=== PATIENT | female | born 1930 | race Caucasian/White ===

== ENCOUNTER 2016-11-12 13:27 | Inpatient (IN) | payer MEDICARE, BC ==
[~2016-11-12 13:27] MED LIST: K-DUR20 ME1 PO; KEFLEX500 MG/CA1 PO; LUMIGAN2.5 M1 OP; MIRALAX17 GM PO; MULTIVITAMIN1 TAB PO; NEURONTIN300 MG PO; OMEPRAZOLE20 M2 PO; ROXICODONE5 MG PO; SOMA250 MG PO; ULTRAM50 M1 PO; XALATAN2.5 M1 EACH EYE; ZESTORETIC 10/11 TAB PO
[2016-11-12] MEDS ORDERED: ALPHAGAN P5 ML EACH EYE (15:43)
[2016-11-12] MEDS ORDERED: STEROID EYE DROP EACH EYE (15:44)
[2016-11-12] MEDS ORDERED: TYLENOL EXTRA500 M1 PO (15:45)
[2016-11-12 16:50] LABS: BASO % 0.2 % (0-2); EOS % 0.1 % (0-7); HCT-HEMATOCRIT 37.1 % (34.0-49.0); HGB-HEMOGLOBIN 12.3 gm/dl (12.0-15.5); IMMATURE GRANULOCYTES ABSOLUTE 0.03 tho/cmm (0-0.03); IMMATURE GRANULOCYTES PERCENT 0.2 % (0-0.3); LYMPH % 8.7 % (20-45); LYMPH ABSOLUTE COUNT 1.1 tho/cmm (0.8-4.5); MCH (MEAN CORPUSCULAR HGB) 32.4 pg (28.0-32.0); MCHC MEAN CORPUSCULAR HGB CONC 33.2 % (32.0-36.0); MCV (MEAN CELL VOLUME) 97.6 fl (82.0-96.0); MONO % 8.7 % (0-12); MONOCYTE ABSOLUTE COUNT 1.1 tho/cmm (0.0-1.2); NEUTROPHIL ABSOLUTE COUNT 10.6 tho/cmm (1.6-8.0); NEUTROPHIL-AUTOMATED 10.6 tho/cmm (1.6-8.0); NEUTROPHILS % 82.1 % (40-80); PLATELET COUNT 575 tho/cmm (150-450); RED CELL DISTRIBUTION WIDTH 13.8 % (12.4-16.4); WHITE BLOOD COUNT 12.9 tho/cmm (4.0-10.0)
[2016-11-12 17:10] LABS: ALB/GLOB RATIO 0.5 (0.8-2.0); ALBUMIN 2.6 g/dl (3.5-5.0); ALKALINE PHOSPHATASE 238 U/L (33-138); ALT/SGPT 25 U/L (12-78); ANION GAP 16 mmol/L (0-20); AST/SGOT 20 U/L (10-40); BILIRUBIN,TOTAL 0.5 mg/dl (0-1.5); BLOOD UREA NITROGEN 18 mg/dl (6-24); CALCIUM 8.8 mg/dl (8.5-10.5); CARBON DIOXIDE-VENOUS 24 mmol/L (22-32); CHLORIDE 104 mmol/l (96-110); CREATININE 0.65 mg/dl (0.50-1.10); GLUCOSE 101 mg/dL (70-110); POTASSIUM 3.6 mmol/L (3.7-5.1); SODIUM 140 mmol/L (135-145); eGFR VALUE FOR BLACK >90 mL/Min
[2016-11-12 17:23] LABS: URINE BILIRUBIN NEGATIVE (NEG); URINE BLOOD MODERATE (NEG); URINE GLUCOSE (UA) NEGATIVE (NEG); URINE KETONE NEGATIVE (NEG); URINE LEUKOCYTE ESTERASE NEGATIVE (NEG); URINE NITRITE NEGATIVE (NEG); URINE PROTEIN NEGATIVE (NEG)
[2016-11-12 17:24] LABS: URINE APPEARANCE CLEAR; URINE COLOR YELLOW
[2016-11-12 17:35] LABS: URINE WBC 0 /[HPF] (0-5)
[2016-11-12 17:36] LABS: URINE EPITHELIAL CELLS 0 /[HPF] (0-10)
[2016-11-13 05:37] LABS: BASO % 0.3 % (0-2); EOS % 0.1 % (0-7); HCT-HEMATOCRIT 31.4 % (34.0-49.0); HGB-HEMOGLOBIN 10.4 gm/dl (12.0-15.5); IMMATURE GRANULOCYTES ABSOLUTE 0.02 tho/cmm (0-0.03); IMMATURE GRANULOCYTES PERCENT 0.2 % (0-0.3); LYMPH % 14.7 % (20-45); LYMPH ABSOLUTE COUNT 1.3 tho/cmm (0.8-4.5); MCH (MEAN CORPUSCULAR HGB) 32.2 pg (28.0-32.0); MCHC MEAN CORPUSCULAR HGB CONC 33.1 % (32.0-36.0); MCV (MEAN CELL VOLUME) 97.2 fl (82.0-96.0); MONO % 9.3 % (0-12); MONOCYTE ABSOLUTE COUNT 0.8 tho/cmm (0.0-1.2); NEUTROPHIL ABSOLUTE COUNT 6.7 tho/cmm (1.6-8.0); NEUTROPHIL-AUTOMATED 6.7 tho/cmm (1.6-8.0); NEUTROPHILS % 75.4 % (40-80); PLATELET COUNT 483 tho/cmm (150-450); RED BLOOD COUNT 3.23 mil/cmm (4.00-5.20); RED CELL DISTRIBUTION WIDTH 13.7 % (12.4-16.4); WHITE BLOOD COUNT 8.8 tho/cmm (4.0-10.0)
[2016-11-13 05:52] LABS: ANION GAP 13 mmol/L (0-20); BLOOD UREA NITROGEN 10 mg/dl (6-24); CALCIUM 7.7 mg/dl (8.5-10.5); CARBON DIOXIDE-VENOUS 23 mmol/L (22-32); CHLORIDE 107 mmol/l (96-110); CREATININE 0.56 mg/dl (0.50-1.10); GLUCOSE 94 mg/dL (70-110); SODIUM 140 mmol/L (135-145); eGFR VALUE FOR BLACK >90 mL/Min
[2016-11-14 08:01] LABS: INR 1.1 INR (0.9-1.1); PROTHROMBIN TIME 12.4 SECONDS (9.0-13.6)
[2016-11-18] MEDS ORDERED: METOPROLOL TART25 M1 PO (09:57)
[2016-11-18] MEDS ORDERED: MUCINEX600 M1 PO (09:57)
[2016-11-18] MEDS ORDERED: IPRAT-ALBUT 0.5-3 ML AP (09:58)
== END 2016-11-18 12:08 | DRG 180 ==
LOC: EDMED 13:27 → EMR2 19:06 → CAR1 11-13 00:33
PROVIDERS: Emergency Medicine; Radiology Diagnostic Radiology; ADMIT Family Medicine
PROC: 0BBL3ZX Excision of Left Lung, Percutaneous Approach, Diagnostic (ICD-10-PCS; principal; 2016-11-14)
DX: C34.90 Malignant neoplasm of unspecified part of unspecified bronchus or lung (principal); J96.01 Acute respiratory failure with hypoxia; E44.1 Mild protein-calorie malnutrition; R00.0 Tachycardia, unspecified
CPT/HCPCS: G8978-GP-CI; G8978-GP-CJ; G8979-GP-CI; G8987-GO-CK; G8988-GO-CJ; G8989-GO-CK; J1650; J2060; J2250; J3010; J7030